=== PATIENT | male | born 1995 | race Caucasian/White ===

== ENCOUNTER 2018-05-18 16:00 | Emergency (ER) | payer BC ==
[2018-05-18 16:34] VITALS: BP 127/54
--- NOTE | 2018-05-18 17:51 | UC ---
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 Pt had surgery for fxs at proximal phalangeal joint. Pt had 4 screws placed. Pain is worse with with ROM." -he states he began to get a little achy 2 days ago with some stuffy nose. resolves w/ 800mgs ibuprofen. declines flu swab. says that is better but he was feeling kind of off, but attributed to URI like sx. denies streaks, dc/ joint is not warm but becoming slightly stiff at DIP. he is supposed to be getting sutures out 05/21/[address] Jaime' office. -he called Dr Jaime' office today and was told he could go there to be seen today or seen locally bc distance. - History of Current Complaint Chief Complaint: Edwin Stated Complaint: S/P SURGERY-RT PINKY RED/SORE Time Seen by Provider: 05/18/18 17:49 Pain Intensity: 2 - Allergies/Home Medications Allergies/Adverse Reactions: Allergies Allergy/AdvReac Type Severity Reaction Status Date / Time No Known Allergies Allergy Verified 05/18/18 16:21 Home Medications: Home Medications Ibuprofen TAB* [Motrin TAB* 600 MG] 600 mg PO TID PRN 05/18/18 [History Confirmed 05/18/18] PMH/Surg Hx/FS Hx/Imm Hx Previously Healthy: Yes - Surgical History Surgical History: Yes Surgery Procedure, Year, and Place: left groin hernia 2003. 05/08/18 right 5th finger with screws by [facility] Jaime [facility] - Family History Known Family History: Positive: Hypertension - Social History Alcohol Use: Weekly Alcohol Amount: 5 Substance Use Type: None Smoking Status (MU): Never Smoked Tobacco Review of Systems All Other Systems Reviewed And Are Negative: Yes Constitutional: Positive: Fatigue. Negative: Chills Skin: Positive: Other - see above Eyes: Positive: Negative ENT: Positive: Negative Respiratory: Positive: Negative Cardiovascular: Positive: Negative Gastrointestinal: Positive: Negative Genitourinary: Positive: Negative Motor: Positive: Negative Neurovascular: Positive: Negative Musculoskeletal: Positive: Other: - see above. rt th digit Neurological: Positive: Negative Psychological: Positive: Negative Is Patient Immunocompromised?: No Physical Exam Triage Information Reviewed: Yes Appearance: Well-Appearing, No Pain Distress, Well-Nourished - good historian. Vital Signs: Initial Vital Signs Temp 98.6 F 05/18/18 16:23 Pulse 78 05/18/18 16:23 Resp 18 05/18/18 16:23 BP 127/54 05/18/18 16:23 Pulse Ox 100 05/18/18 16:23 Vital Signs Reviewed: Yes Eye Exam: Normal ENT Exam: Normal ENT: Positive: Pharynx normal Neck exam: Normal Respiratory Exam: Normal Respiratory: Positive: Lungs clear, Normal breath sounds, No respiratory distress, No accessory muscle use. Negative: Crackles, Rhonchi, Stridor, Wheezing Cardiovascular Exam: Normal Cardiovascular: Positive: RRR Abdomen Description: Positive: Nontender, Soft Musculoskeletal: Positive: Other: - right extensor 5th digit w/ well healing wound. sutures intact. there is mild generalized swelling and erythema at the inicision site. not in surrounding area except for distal ulnar aspect of wound. no active dc. mildly wrarm to touch. no streaks. CR brisk. sens intact. somewhat limited flexion at PIP & DIP Neurological Exam: Normal Psychological Exam: Normal Skin: Positive: Other - see above Upper Extremity Course/Dx - Course Course Of Treatment: rt 5th digit cellulitis s/p surgery w/ Dr Jaime on 05/08. mild cellulitis. Explained that he should call ortho hvac controls technician or be seen at weekend hrs at [facility] joint if sx worsen, streaks, fevers, dc. etc. he understood me well and is very agreeable w/ plan. - Differential Dx/Diagnosis Differential Diagnosis/HQI/PQRI: Other - cellulitis Provider Diagnosis: Cellulitis and abscess of finger, unspecified Discharge - Sign-Out/Discharge Documenting (check all that apply): Patient Departure All imaging exams completed and their final reports reviewed: No Studies - Discharge Plan Condition: Stable Disposition: HOME Prescriptions: Cephalexin CAP* [Keflex CAP*] 500 mg PO TID 30 Days #30 cap Patient Education Materials: Cellulitis (ED) Referrals: No Primary Care Phys,NOPCP [Primary Care Provider] - Addison OLIVER,Travis Frey [Medical Doctor] - Additional Instructions: -Take this discharge ppwk with you to your appt on Monday. You should call the hvac controls technician orthopedic surgeon covering for Dr Addison if you develop any fevers, chills, discharge, warmth or streaking from your wound. -Set a timer so that you can remember to take the antibiotic -Make sure to take a probiotic daily while on antibiotics to help prevent a potential complication of antibiotic use called c diff. Some well known brands that can be found OTC are florastor, align and [email or web address]. Make sure to complete the entire prescription unless advised otherwise by your health care provider. - Billing Disposition and Condition Condition: STABLE Disposition: Home
== END 2018-05-18 18:09 | disposition home or self-care (01) ==
LOC: UCCORT 16:00
DX: L03.011 Cellulitis of right finger (principal); L02.511 Cutaneous abscess of right hand
CPT/HCPCS: 99212; G0463